=== PATIENT | female | born 1975 | race African-American/Black ===

== ENCOUNTER 2023-11-25 17:53 | Emergency (ER) | payer BC ==
[2023-11-25 19:50] VITALS: RESP 18; TEMP 98.5; BMI 33.3
[2023-11-25 20:00] VITALS: BP 160/110; PULSE 105
[2023-11-25] MEDS ORDERED: HYDROCHLOROTHIAZIDE 25 MG TABLET (FP) ONE (20:05)
[2023-11-25] MEDS: HYDROCHLOROTHIAZIDE 25 MG TABLET (FP) PO STA (20:08)
== END 2023-11-25 20:19 | disposition home or self-care (01) ==
LOC: JER 17:53
DX: I10 Essential (primary) hypertension (principal)
CPT/HCPCS: 99283-25